=== PATIENT | male | born 1975 | race Caucasian/White ===

== ENCOUNTER 2018-01-14 20:08 | Emergency (ER) | payer OTHER ==
[~2018-01-14] VITALS: Ht 167.6 cm; Wt 72.0 kg
[~2018-01-14 20:08] MED LIST: CEPH500C3 PO; LORT5TAB PO; Z.0.NO CURRENT MEDS
[2018-01-14 20:10] VITALS: BP 171/72; PULSE 64; RESP 18; TEMP 98; O2SAT 99
[2018-01-14] MEDS ORDERED: CEPH-460 PO (20:45)
--- NOTE | 2018-01-14 20:46 | PD ---
HPI Chief Complaint: Laceration/Skin Injury Time Seen by Provider: 20:29 Travel History International Travel<30 days: No Contact w/Intl Traveler<30days: No Traveled to known affect area: No History of Present Illness HPI 42-year-old male here with a laceration to the left thumb. He reports a piece of tile cut the thumb and 1030 this morning. He cleanse the area and placed a bandage. Later this evening the area began to rebleed and he came in for evaluation. He denies altered sensation or weakness of the thumb. He has normal range of motion and strength in the digit. His tetanus immunization is not up-to-date. He does not believe there is any retained foreign body. He has aching pain at the site of laceration which is constant. Symptom severity is mild. PFSH Past Medical History Medical History: Denies Significant Hx Diminished Hearing: No Influenza Vaccination: No ?: Not Past Surgical History Other Surgery: Yes (Vasectomy) Social History Alcohol Use: Yes (2 BEERS DAILY) Tobacco Use: No Substance Use: No Allergies-Medications (Allergen,Severity, Reaction): Coded Allergies: No Known Allergies (Verified , 08/10/08) Reported Meds & Prescriptions Reported Meds & Active Scripts Active Review of Systems Except as stated in HPI: all other systems reviewed are Neg General / Constitutional: No: Fever Eyes: No: Visual changes HENT: No: Headaches Cardiovascular: No: Chest Pain or Discomfort Respiratory: No: Shortness of Breath Gastrointestinal: No: Abdominal Pain Genitourinary: No: Dysuria Physical Exam Narrative GENERAL: Alert and well-appearing 42-year-old male SKIN: Warm and dry. HEAD: Normocephalic. EYES: No injection or drainage. NECK: Supple MUSCULOSKELETAL: No cyanosis, or edema. Left hand: 1 cm laceration to the dorsal aspect of the left thumb over the proximal phalanx. No tendon or vascular injury identified. No active bleeding. No foreign body visualized. Patient has normal strength and sensation within the digit. Brisk cap refill. Data Data Last Documented VS Vital Signs Date Time Temp Pulse Resp B/P (MAP) Pulse Ox O2 Delivery O2 Flow Rate FiO2 01/14/18 20:19 18 01/14/18 20:10 98.0 64 171/72 (105) 99 MDM Medical Decision Making Medical Screen Exam Complete: Yes Emergency Medical Condition: Yes Differential Diagnosis Thumb laceration, tendon injury, retained foreign body. Narrative Course 42-year-old male here with a laceration to left thumb greater than 10 hours old , therefore suture repair was not performed due to risk of infection. The digit is neurovascularly intact. The wound was thoroughly irrigated. Wound edges are well approximated. Sterile dressing and thumb splint applied. Patient be placed on prophylactic antibiotics. Tetanus immunization updated today. Return precautions discussed. He agrees to follow-up with his primary doctor for recheck this week. Diagnosis Primary Impression: Thumb laceration Qualified Codes: S61.012A - Laceration without foreign body of left thumb without damage to nail, initial encounter Referrals: Primary Care Physician Additional Instructions: Cleanse the area daily with soap and water. Apply a thin layer of antibiotic ointment and cover with a dry dressing. Follow-up with your primary doctor for recheck of the wound. Return if he develop increasing pain, redness, decreased mobility of the thumb. Scripts Cephalexin (Keflex) 500 Mg Capsule 500 MG PO Q6H for Infection for 5 Days, #20 CAP 0 Refills Prov: Kristen Price 01/14/18 Disposition: 01 DISCHARGE HOME Condition: Stable Kristen Price Jan 14, 2018 20:46
[2018-01-14] MEDS ORDERED: TETANUS/DIPHTHERIA TOXOID ADULT 0.5 ML VIAL IM ONE (21:00)
[2018-01-14 21:24] VITALS: BP 119/66
== END 2018-01-14 21:25 | disposition home or self-care (01) ==
LOC: PHEFT 20:08
DX: S61.012A Laceration without foreign body of left thumb without damage to nail, initial encounter (principal); W31.89XA Contact with other specified machinery, initial encounter; Z23 Encounter for immunization
CPT/HCPCS: 90714